=== PATIENT | female | born 1990 | race Caucasian/White ===

== ENCOUNTER 2019-04-19 11:04 | Inpatient (IN) | payer BC ==
[~2019-04-19] VITALS: Ht 157.5 cm; Wt 61.8 kg
--- NOTE | 2019-04-19 19:10 | NUR ---
0- PT PRESENTS TO LDR FOR SCHEDULED INDUCTION, AMBULATORY TO ROOM LR5, CHANGED INTO GOWN. 1915- EFM X2 APPLIED. PT HAS BEEN HAVING SOME INTERMITTENT CONTRACTIONS AND A PINK TINGED DISCHARGE WHEN SHE WIPES. DENIES LEAKING FLUID AND STATES SHE IS FEELING THE BABY MOVE. PLAN OF CARE DISCUSSED FOR INDUCTION AND QUESTIONS ANSWERED. 1924- IV STARTED TO LEFT WRIST CHARTED, BLOOD DRAWN FOR LAB. SVE BY THIS NURSE 0-/-3 WITH POSTERIOR CERVIX. UPDATED PT AND QUESTIONS ANSWERED. 1933- DR GONZALES CALLED AND VERIFIES CYTOTEC ORDERS 2 DOSES OF 25MCG PO 4 HOURS APART. NO NEW ORDERS. 1939- CONSENTS SIGNED. 1944- ORAL CYTOTEC GIVEN ORDERED. PLAN OF CARE AND WHAT TO EXPECT DISCUSSED WITH PT AND QUESTIONS ANSWERED. 1949- NURSING ADMISSION HISTORY AND ASSESSMENT COMPLETE. 2014- ORAL HYDRATION PROVIDED. PT DENIES FURTHER NEEDS. 2149- PT DENIES NEEDS AT THIS TIME. PLAN OF CARE UPDATED. PT WILL CALL OUT IF WANTING [facility].
[2019-04-19 19:45] VITALS: BP 125/80; PULSE 82; TEMP 98.2
[2019-04-19 19:45] LABS: BASO % 0.3 % (0.0-2.0); EOS # 0.1 (0.0-0.7); EOS % 0.5 % (0-4.0); GRAN % 69.8 % (42.2-75.2); HEMATOCRIT 39.6 % (37.0-47.0); HEMOGLOBIN 13.9 g/dl (12.5-16.0); LYMPH # 2.3 (1.2-3.4); LYMPH % 22.6 % (20.0-51.0); MEAN CELL VOLUME 94 fl (80.0-100.0); MEAN CORPUSCULAR HEMOGLOBIN 33 pg (27.0-31.0); MEAN CORPUSCULAR HGB CONC 35 g/dl (33.0-37.0); MEAN PLATELET VOLUME 9.6 fl (7.4-10.4); MONO # 0.6 (0.1-0.6); MONO % 6.2 % (1.7-9.3); PLATELET COUNT 207 K/mm3 (130-400)
[2019-04-19] MEDS ORDERED: CALCIUM CARBON650 M2 (19:53)
[2019-04-19] MEDS ORDERED: PRENATAL VITAMI1 TA3 PO (19:53)
[2019-04-19 20:15] VITALS: BP 114/77; PULSE 78
[2019-04-19 20:45] VITALS: BP 118/72; PULSE 63
[2019-04-19 21:15] VITALS: BP 112/65; PULSE 64
[2019-04-19 21:45] VITALS: BP 114/73; PULSE 62
--- NOTE | 2019-04-19 23:40 | NUR ---
2340- PT UP TO BATHROOM. STATES SHE IS FEELING MORE CONTRACTIONS, HAS NOT BEEN ABLE TO FALL ASLEEP YET. 2350- CYTOTEC GIVEN PO ORDERED. PLAN OF CARE UPDATED WITH PT AND QUESTIONS ANSWERED. ENCOURAGED PT TO TRY AND REST MUCH POSSIBLE. PT DENIES FURTHER NEEDS AT THIS TIME. 0125- NURSE TO BEDSIDE. PT STATES SHE IS A LITTLE MORE UNCOMFORTABLE BUT IS DENYING ANY NEEDS AT THIS TIME.
[2019-04-20] VITALS (37 sets, daily range): BP systolic 96–137; BP diastolic 54–94; PULSE 50–100; TEMP 97.8–98.6
--- NOTE | 2019-04-20 02:20 | NUR ---
0220- PT CALLS OUT STATING HER WATER HAS BROKEN, NURSE TO BEDSIDE. AMNITRACE IS POSITIVE WITH CLEAR FLUID POOLING FROM VAGINA. 0230- SVE BY THIS NURSE . DISCUSSED PLAN OF CARE WITH PT INCLUDING COMFORT MEASURES, PITOCIN AT 0400, AND QUESTIONS ANSWERED. 0320- PT UP TO BATHROOM, REPORTS INCREASING DISCOMFORT. BIRTHING BALL OFFERED AND PT WISHES TO TRY. 0329- PT ASSISTED TO BIRTHING BALL FOR COMFORT. TOCO ADJUSTED. 0415- NURSE TO BEDSIDE TO DISCUSS DELAYING PITOCIN DUE TO CONTRACTION PATTERN. PT STATES SHE IS THINKING ABOUT AN EPIDURAL AT THIS TIME DUE TO CONTRACTIONS BEING SO CLOSE TOGETHER AND SO INTENSE. PLAN OF CARE DISCUSSED. PT WISHES TO HAVE CERVIX CHECKED AND CALL ABOUT EPIDURAL. 0- SVE BY THIS NURSE 2-. 0424- DR GONZALES CALLED AND UPDATED ON PT CERVICAL EXAM, DESIRE FOR EPIDURAL, VITALS STABLE, STRIP ASSESSMENT, SROM OF CLEAR FLUID, AND DELAY OF PITOCIN. DR GONZALES GIVES ORDER FOR EPIDURAL. 0426- [facility] C[facility]OV[facility] IN[facility]IVE SPECIALIST CALLED FOR EPIDURAL. 0428- PT UPDATED ON DR GONZALES ORDER FOR EPIDURAL AND THAT YULISA IS ON HIS WAY. LR BOLUS STARTED FOR EPIDURAL, PT ASSISTED BACK ON BIRTHING BALL FOR COMFORT.
--- NOTE | 2019-04-20 06:58 | NUR ---
0630 TO VARIABLES NOTED AT THIS TIME. PATIENT FEELING PRESSURE IN BUTT. SVE 8/100/0 UNKNOWN PRESENTING PART BUT APPEARS TO BE BREECH. DR GONZALES CALLED FOR UPDATE, ON WAY IN FOR ANOTHER DELIVER. ORDERS TO CALL DR HICKMAN TO COME NOW FOR OTHER PATIENT SONO FOR PRESENTING PART AND DELIVERY.
--- NOTE | 2019-04-20 07:17 | NUR ---
Last PRITCHARD RN HERE AND REPORT GIVEN TO ASSUME CARE AT THIS TIME.
--- NOTE | 2019-04-20 07:18 | NUR ---
0715 DR GONZALES HERE AND BEDSIDE SONO DONE FOR CONFIRM BREECH PRESENTATION. DR HICKMAN AT BEDSIDE ALSO . 9/0
--- NOTE | 2019-04-20 07:20 | NUR ---
Pt prepped for c/section. Rohini ROBLES at bedside. 0723:Pt taken to main OR #2 with assist.
--- NOTE | 2019-04-20 09:05 | NUR ---
Pt taken to room 209 via bed from PACU. Pt alert and oriented, holding infant skin to skin. VSS, fundus firm and bleeding WNL.
--- NOTE | 2019-04-20 10:15 | NUR ---
Pericare done and new pads placed. Pt changed to gown. Denies any pain, SCD's on bilaterally.
--- NOTE | 2019-04-20 13:15 | NUR ---
Pt up to bathroom with assist. Livingston catheter removed. Pericare instructions given. New pads in place. Pt up and ambulating around the room. Abdominal binder in place.
[2019-04-21 02:00] VITALS: BP 104/69; PULSE 70; TEMP 98.5
[2019-04-21 07:05] VITALS: BP 106/70; PULSE 72; TEMP 98
[2019-04-21 07:38] LABS: HEMOGLOBIN 12.2 g/dl (12.5-16.0)
[2019-04-21 07:40] LABS: HEMATOCRIT 35.8 % (37.0-47.0)
[2019-04-21] MEDS ORDERED: PERCOCET 325 MG1 TA2 PO (09:33)
[2019-04-21] MEDS ORDERED: IBU600 MG PO (09:33)
--- NOTE | 2019-04-21 09:44 | NUR ---
Initial visit; Mom thanked Slot Supervisor for offering congratulations and God's blessings for the of their daughter. Slot Supervisor thanked mom for choosing [facility].
[2019-04-21 16:55] VITALS: BP 126/82; PULSE 69; TEMP 97.8
[2019-04-21 21:00] VITALS: BP 122/77; PULSE 73; TEMP 97.8
[2019-04-22 07:30] VITALS: BP 126/68; PULSE 61; TEMP 98.1
[2019-04-22 16:19] VITALS: BP 131/85; PULSE 60; TEMP 97.5
[2019-04-22 20:05] VITALS: BP 124/82; PULSE 65; TEMP 97.8
[2019-04-23 07:15] VITALS: BP 122/75; PULSE 64; TEMP 98
== END 2019-04-23 12:15 | disposition home or self-care (01) | DRG 788 ==
LOC: LDR 11:04 → OB 04-20 09:08 → LDR 04-20 11:01 → OB 04-21 13:10
PROVIDERS: ADMIT Obstetrics & Gynecology
PROC: 3E0P7VZ Introduction of Hormone into Female Reproductive, Via Natural or Artificial Opening (ICD-10-PCS; principal; 2019-04-19)
PROC: 10D00Z1 Extraction of Products of Conception, Low, Open Approach (ICD-10-PCS; 2019-04-20)
DX: O48.0 Post-term pregnancy (principal); Z3A.40 40 weeks gestation of pregnancy; Z37.0 Single live birth; O32.1XX0 Maternal care for breech presentation, not applicable or unspecified
CPT/HCPCS: J0690; J1885; J2370; J2400; J2405; J2590; J2791; J2795; J3010; J7120

== ENCOUNTER → 2019-05-26 | Outpatient (CLI) | payer BC ==
[~2019-05-26] MED LIST: CALCIUM CARBON650 M2; IBU600 MG PO; PERCOCET 325 MG1 TA2 PO; PRENATAL VITAMI1 TA3 PO
--- NOTE | 2019-05-26 12:09 | NUR ---
Pt, Frank Cheek, presents to walk-in clinic with 5 week old baby girl, Ele Cheek. Frank contacted this LC by phone previously with concerns about Ele getting frantic at feedings, suckling hard and then unlatching. Suggestions were made at that time to manage what sounded like forceful let-down or over supply of milk. Pt states she has utilized those suggestions and feels the feedings are improving. Ele was born by C/section for breech presentation on [birth year] and weighed 6#6.5oz (2905 gms). Today Ele weighs 8#10.4oz (3922 gms). Pt works well with latching and nursing Ele independantly. Ele seems to manage milk transfer well at this feeding. Weight gain after nursing is 2.2oz, (66gms). Based on overall weight gain, and "snack" earlier, expect this is below average. General questions answered. POC: Continue ad phyllis. F/U: As scheduled with Dr. Landry, and walk-in clinic as desired.
== END ==
LOC: LAC 11:43
DX: Z39.1 Encounter for care and examination of lactating mother (principal); Z71.89 Other specified counseling

== ENCOUNTER 2021-06-02 04:34 | Inpatient (IN) | payer BC ==
[2021-06-02] VITALS (20 sets, daily range): BP systolic 86–138; BP diastolic 51–82; PULSE 57–155; TEMP 98
[~2021-06-02] VITALS: Ht 156.8 cm; Wt 68.2 kg
--- NOTE | 2021-06-02 04:40 | NUR ---
0440- PATIENT AND SPOUSE AMBULATORY TO THE UNIT. PATIENT IS A AT 39.2, PATIENT OF DR. TALLEY. PATIENT VERBALIZES HER WATER BREAKING AT 0230 THIS MORNING. PATIENT VERBALIZES IRREGULAR CONTRACTIONS, GFM AND DENIES BLEEDING. 0444- EFM AND TOCO ON AND TRACING. VITALS TAKEN, ASSESSMENT COMPLETED. QUESTIONS ANSWERED. 0452- SVE 1-2/50/-3 WITH POSITIVE AMNIOTRACE AND CLEAR FLUID RETURN IN THIS RN HAND. DISCUSSED PLAN OF CARE. PATIENT HAD PRIMARY WITH FIRST CHILD FOR JS BREECH AND IS THINKING ABOUT TOLAC BUT IS NOT 100% SURE AT THIS TIME. ADVISES SHE HAS SOME TIME TO THINK.
[2021-06-02] MEDS ORDERED: COLACE 100100 MG/CAP PO (06:46)
[2021-06-02] MEDS ORDERED: CALCIUM 600MG+D1 TAB PO (06:46)
[2021-06-02 07:09] LABS: BASO % 0.5 % (0.0-2.0); EOS % 0.4 % (0-4.0); GRAN # 6.1 K/mm3 (1.4-6.5); GRAN % 74.7 % (42.2-75.2); HEMOGLOBIN 12.5 g/dl (12.5-16.0); LYMPH # 1.4 K/mm3 (1.2-3.4); LYMPH % 17.3 % (20.0-51.0); MEAN CELL VOLUME 94 fl (80.0-100.0); MEAN CORPUSCULAR HEMOGLOBIN 33 pg (27.0-31.0); MEAN CORPUSCULAR HGB CONC 35 g/dl (33.0-37.0); MEAN PLATELET VOLUME 10.7 fl (7.4-10.4); MONO # 0.5 K/mm3 (0.1-0.6); MONO % 6.5 % (1.7-9.3); PLATELET COUNT 179 K/mm3 (130-400); RED BLOOD COUNT 3.76 M/mm3 (4.10-5.30); REDCELL DISTRIBUTION WIDTH-CV 12.6 % (11.5-14.5)
[2021-06-02 07:11] LABS: HEMATOCRIT 35.4 % (37.0-47.0)
[2021-06-03] VITALS: BP 111/70; PULSE 78; TEMP 98.3
[2021-06-03 04:00] VITALS: BP 114/67; PULSE 86; TEMP 98.8
[2021-06-03 07:30] VITALS: BP 112/79; PULSE 77; TEMP 97.6
--- NOTE | 2021-06-03 07:30 | NUR ---
Rests on bench seat. Request mylicon. Mylicon given 160 mg as ordered and per request.
[2021-06-03 16:00] VITALS: BP 117/69; PULSE 63; TEMP 97.5
[2021-06-03] MEDS ORDERED: MOTRIN 800800 MG/TAB PO (17:47)
[2021-06-03] MEDS ORDERED: PERCOCET 325 MG1 TA2 PO (17:47)
[2021-06-03 19:45] VITALS: BP 116/70; PULSE 78; TEMP 97.8
[2021-06-04 07:45] VITALS: BP 120/78; PULSE 66; TEMP 98.2
--- NOTE | 2021-06-04 08:00 | NUR ---
Rests in bed, alert. Denies any pain or discomfort at this time.
--- NOTE | 2021-06-04 10:15 | NUR ---
Sits up in bed, alert. Tylenol 500 mg given per request and as ordered.
--- NOTE | 2021-06-04 12:45 | NUR ---
Discharge instructions given, verbalizes understanding.
== END 2021-06-04 12:50 | disposition home or self-care (01) | DRG 788 ==
LOC: LDRO 04:34 → LDR 05:00 → LDRO 05:01 → LDR 05:02 → OB 09:00
PROVIDERS: Obstetrics & Gynecology; ADMIT Obstetrics & Gynecology
PROC: 10D00Z1 Extraction of Products of Conception, Low, Open Approach (ICD-10-PCS; principal; 2021-06-02)
DX: O34.211 Maternal care for low transverse scar from previous cesarean delivery (principal); Z37.0 Single live birth; O26.893 Other specified pregnancy related conditions, third trimester; Z67.41 Type O blood, Rh negative; Z3A.39 39 weeks gestation of pregnancy; Z23 Encounter for immunization
CPT/HCPCS: J0171; J0690; J1885; J2175; J2370; J2405; J2590; J7120

== ENCOUNTER → 2022-11-30 | Outpatient (CLI) | payer BC ==
[~2022-11-30] MED LIST changes: +CALCIUM 600MG+D1 TAB PO; +COLACE 100100 MG/CAP PO; +MOTRIN 800800 MG/TAB PO
== END ==
LOC: MC.RAD 10:49
DX: N63.20 Unspecified lump in the left breast, unspecified quadrant (principal)